=== PATIENT | female | born 1975 | race Two or more races ===

== ENCOUNTER 2024-05-11 08:05 | Emergency (ER) | payer MEDICAID ==
[~2024-05-11] VITALS: Ht 170.2 cm; Wt 87.5 kg
[2024-05-11 08:26] VITALS: TEMP 98.4
[2024-05-11] MEDS: IV NS 0.9% 1,000 ML BAG IV ONE (08:30)
[2024-05-11] MEDS: ONDANSETRON HCL/PF 4 MG/2 ML VIAL IVP ONE (08:30)
[2024-05-11] MEDS ORDERED: ONDANSETRON HCL/PF 4 MG/2 ML VIAL ONE (08:34)
[2024-05-11 08:54] LABS: BASOPHILS % (AUTO) 0.9 % (0.0-2.0); EOSINOPHILS # (AUTO) 0.1 K/uL (0.0-0.7); EOSINOPHILS % (AUTO) 1.6 % (0.0-6.0); HEMATOCRIT 37 % (33-45); HEMOGLOBIN 11.1 g/dL (11.5-14.8); LYMPHOCYTES # (AUTO) 1.5 K/uL (0.8-4.8); MEAN CORPUSCULAR HEMOGLOBIN 19 PG (26.0-33.0); MEAN CORPUSCULAR HGB CONC 30 g/dl (31.0-36.0); MEAN CORPUSCULAR VOLUME 64 fL (82-100); MONOCYTES # (AUTO) 0.3 K/uL (0.1-1.30); MONOCYTES % (AUTO) 6.1 % (2.0-12.0); NEUTROPHILS # (AUTO) 2.7 K/uL (1.8-8.9); NEUTROPHILS % (AUTO) 58.4 % (43.0-81.0); PLATELET COUNT (AUTO) 275 K/uL (150-450); RED BLOOD CELL COUNT(AUTO) 5.86 MIL/uL (4.0-5.2); RED CELL DISTRIBUTION WIDTH 24.6 % (11.5-15.0); WHITE BLOOD COUNT (AUTO) 4.6 K/uL (4.3-11.0)
[2024-05-11 08:56] LABS: APPEARANCE,URINE CLEAR (CLEAR); BILIRUBIN,URINE NEGATIVE (NEGATIVE); BLOOD, URINE NEGATIVE Ery/uL (NEGATIVE); COLOR,URINE YELLOW (YELLOW); KETONES,URINE NEGATIVE (NEGATIVE); LEUKOCYTE ESTERASE ,URINE NEGATIVE (NEGATIVE); NITRITE, URINE NEGATIVE (NEGATIVE); PH,URINE 5.5 (5.0-8.0); PROTEIN,URINE NEGATIVE (NEGATIVE); UGLUCOSE NEGATIVE (NEGATIVE); UROBILINOGEN,URINE 0.2 EU/dL (0.2)
[2024-05-11 08:57] LABS: PREGNANCY TEST URINE QUAL NEGATIVE (NEGATIVE)
[2024-05-11 09:02] LABS: CALCIUM, SERUM 9.6 mg/dL (8.5-10.1); POTASSIUM 3.8 mmol/L (3.5-5.1)
[2024-05-11 09:08] LABS: BILIRUBIN,DIRECT 0.1 mg/dL (0.0-0.2); BILIRUBIN,TOTAL 0.7 mg/dL (0.2-1.0)
[2024-05-11 12:01] VITALS: BP 136/72; O2SAT 99
== END 2024-05-11 12:01 | disposition home or self-care (01) ==
LOC: EDBD 08:26 → ER 08:26
DX: D25.9 Leiomyoma of uterus, unspecified (principal); R10.2 Pelvic and perineal pain; R10.30 Lower abdominal pain, unspecified; R11.0 Nausea; R74.8 Abnormal levels of other serum enzymes
CPT/HCPCS: 99285; 96374; 76856; 96361; 85025; 80048; 83690; 80076; 84703; 81003; 36415; J2405; J7030

== ENCOUNTER 2025-08-11 20:37 | Emergency (ER) | payer MEDICAID ==
[~2025-08-11] VITALS: Ht 170.2 cm; Wt 93.4 kg
[2025-08-11] MEDS ORDERED: IBUPROFEN 400 MG TABLET ONE (23:40)
[2025-08-11] MEDS: IBUPROFEN 400 MG TABLET PO ONE (23:43)
[2025-08-12 01:29] VITALS: BP 156/90; TEMP 98; O2SAT 98
== END 2025-08-12 01:30 | disposition home or self-care (01) ==
LOC: ER 20:41
DX: J02.8 Acute pharyngitis due to other specified organisms (principal); R59.0 Localized enlarged lymph nodes; B97.89 Other viral agents as the cause of diseases classified elsewhere; Z20.822 Contact with and (suspected) exposure to COVID-19
CPT/HCPCS: 86403-TC; 87070-TC